=== PATIENT | female | born 1955 | race Caucasian/White ===

== ENCOUNTER 2017-03-28 09:25 | Emergency (ER) | payer OTHER ==
[2017-03-28 09:30] VITALS: BP 179/98; PULSE 100; TEMP 99; BMI 33.2
[2017-03-28] MEDS ORDERED: KETOROLAC TROMETHAMINE 60 MG/2 ML VIAL ONE (10:22)
[2017-03-28] MEDS ORDERED: KETOROLAC TROMETHAMINE 60 MG/2 ML VIAL IM ONE (10:25)
--- NOTE | 2017-03-28 10:27 | PDOC ---
History of Present Illness - General Chief Complaint: Injury Stated Complaint: PAIN/ BACK, HEAD Time Seen by Provider: 03/28/17 09:55 History Source: Patient Exam Limitations: No Limitations - History of Present Illness Initial Comments: 03/28/17 10:26 Was post slip and fall on black ice this morning states fell backwards striking her head on the ground, her upper and lower back and her right buttock. Denied LOC, states was mildly dizzy but has resolved. Feels her mental status is within normal limits but has mild headache. Has multiple contusions to her back and her right buttock but does not feel any extremity injury or deformity. 03/28/17 10:55 Occurred: reports: just prior to arrival, this morning Severity: reports: moderate Pain Location: reports: back, head, pelvis Method of Injury: Yes: direct blow Modifying Factors: improves with: None, cold therapy Loss of Consciousness: no loss of consciousness Associated Symptoms (Fall): muscle spasms Past History - Travel Traveled outside of the country in the last 30 days: No Close contact w/someone who was outside of country & ill: No - Past Medical History Allergies/Adverse Reactions: Allergies Allergy/AdvReac Type Severity Reaction Status Date / Time No Known Allergies Allergy Verified 03/28/17 09:30 Home Medications: Ambulatory Orders Cyclobenzaprine HCl [Flexeril 10 mg] 10 mg PO BID PRN #14 tablet 03/28/17 COPD: No Diabetes: Yes HTN: Yes Hypercholesterolemia: Yes - Suicide/Smoking/Psychosocial Hx Smoking History: Never smoked Hx Alcohol Use: Yes (SOCIAL) Drug/Substance Use Hx: No Substance Use Type: None Trauma Specific PMHX - Complaint Specific PMHX Back Injury: Yes Neck Injury: No Review of Systems - Review of Systems Able to Perform ROS?: Yes Is the patient limited German proficient: Yes Constitutional: Yes: Symptoms Reported, See HPI, Malaise. No: Weakness HEENTM: Yes: See HPI. No: Symptoms Reported Respiratory: Yes: See HPI. No: Symptoms reported, Cough ABD/GI: No: Symptoms Reported Musculoskeletal: Yes: Symptoms Reported, See HPI, Back Pain, Muscle Pain Integumentary: Yes: Symptoms Reported Neurological: No: Symptoms reported All Other Systems: Reviewed and Negative *Physical Exam - Vital Signs Last Vital Signs Temp Pulse Resp BP Pulse Ox 99.0 F 100 H 20 179/98 99 03/28/17 09:25 03/28/17 09:25 03/28/17 09:25 03/28/17 09:25 03/28/17 09:25 - Physical Exam General Appearance: Yes: Nourished, Appropriately Dressed, Apparent Distress HEENT: positive: BALAJI, TMs Normal (no hemotympanum, no drainage from nose or ears, no evidence of skull fracture), Pharynx Normal, Other (has mild tenderness but no obvious contusion or hematoma to scalp at occiput, site of impact). negative: Rhinorrhea Neck: positive: Supple, Other (no cervical spine tenderness, has some mild tenderness to the upper trapezius and sternocleidomastoid full range of motion.) . negative: Tender, Tender midline Respiratory/Chest: positive: Lungs Clear Gastrointestinal/Abdominal: positive: Soft. negative: Tender Extremity: positive: Normal Capillary Refill, Normal Inspection, Normal Range of Motion Integumentary: positive: Dry, Warm, Bruising (bruising and hematoma noted to right gluteus midpoint with tenderness, site of impact). negative: Normal Color Neurologic: positive: studio artist II-XII NML intact, Fully Oriented, Alert, Normal Mood/ Affect, Normal Response, Motor Strength 5/5 Progress Note - Progress Note Progress Note: Status post fall with superficial head injury, no evidence of skull fracture or neurologic change. With multiple contusions. We'll treat for antispasm NSAIDs and have follow-up with her appointment on Sunday scheduled *DC/Admit/Observation/Transfer Diagnosis at time of Disposition: Superficial injury of head Qualifiers: Encounter type: initial encounter Qualified Code(s): S00.90XA - Unspecified superficial injury of unspecified part of head, initial encounter - Discharge Dispostion Disposition: HOME Condition at time of disposition: Stable Admit: No - Prescriptions Prescriptions: Cyclobenzaprine HCl [Flexeril 10 mg] 10 mg PO BID PRN #14 tablet PRN Reason: spasm - Referrals Referrals: Vamsi Finley [Primary Care Provider] - - Patient Instructions Printed Discharge Instructions: DI for Closed Head Injury, Easy Bruising ( Alternative Therapy) Additional Instructions: Rest, avoid strenuous activity or exercise for the next 24-48 hours May use ice on contusions as needed. May use Tylenol or Motrin for pain relief Watch and seek evaluation for changes in behavior including crankiness, inconsolability, quietness/ sleepiness that is inappropriate, tiredness that is inappropriate, watch for worsening and changes of behavior. Seek immediate evaluation/return to emergency department for vomiting, mental status changes, pain that's out of proportion , bloody drainage from ears or nose. Followup with private physician as needed in one to 2 days for reevaluation Rest, no heavy lifting or exercise until pain is resolved Hot soaks to neck and low back as often as possible/hot showers or Jacuzzis No massage or therapy until spasm is gone Continue ibuprofen 2-200 mg tablets every 6 hours for the next 3 days then as needed for pain and swelling Cyclobenzaprine 1-10mg every 8 hours as needed for spasm If not significant improvement within 24 hours with medication and rest regime, followup with private physician for change in medications and /or therapy. - Post Discharge Activity Forms/Work/School Notes: Back to Work
== END 2017-03-28 11:02 | disposition home or self-care (01) ==
LOC: JERFT 09:25
PROC: 3E0233Z Introduction of Anti-inflammatory into Muscle, Percutaneous Approach (ICD-10-PCS; principal; 2017-03-28)
DX: S00.90XA Unspecified superficial injury of unspecified part of head, initial encounter (principal); W00.0XXA Fall on same level due to ice and snow, initial encounter; Y93.89 Activity, other specified; Y92.9 Unspecified place or not applicable; I10 Essential (primary) hypertension; E78.00 Pure hypercholesterolemia, unspecified
CPT/HCPCS: 96372; 99281-25

== ENCOUNTER 2021-02-22 08:22 | Emergency (ER) | payer OTHER ==
[2021-02-22 08:36] VITALS: BMI 32.9
[2021-02-22] MEDS ORDERED: ACETAMINOPHEN 325 MG TABLET (FP) PO ONE (09:15)
[2021-02-22] MEDS ORDERED: ACETAMINOPHEN 325 MG TABLET (FP) ONE (10:33)
[2021-02-22 11:24] LABS: BASO % 0.5 % (0-2.0); EOS % 3.1 % (0-4.5); HEMATOCRIT 39.2 % (32.4-45.2); HEMOGLOBIN 13.4 GM/dL (10.7-15.3); LYMPH % 24.2 % (8-40); MCHC 34.3 g/dl (32.0-36.0); MEAN CELL VOLUME 84.7 fl (80-96); MEAN PLT VOLUME 6.9 fl (7.5-11.1); MONO % 10.9 % (3.8-10.2); NEUT % 61.3 % (42.8-82.8); PLATELET COUNT 313 10^3/uL (134-434); RBC 4.62 M/mm3 (3.60-5.2); RDW 13.4 % (11.6-15.6); WHITE BLOOD COUNT 4.6 K/mm3 (4.0-10.0)
[2021-02-22 11:48] LABS: CHLORIDE 104 mmol/L (98-107); SODIUM 141 mmol/L (136-145)
[2021-02-22 11:50] LABS: ALBUMIN 3.8 g/dl (3.4-5.0); ANION GAP 7 MMOL/L (8-16); BLOOD UREA NITROGEN 13.3 mg/dL (7-18); CALCIUM 9.4 mg/dL (8.5-10.1); CO2 30 mmol/L (21-32)
[2021-02-22 11:51] LABS: GLUCOSE,RANDOM 141 mg/dL (74-106)
[2021-02-22 11:53] LABS: SGPT/ALT 57 U/L (13-61)
[2021-02-22 11:54] LABS: CREATININE 0.8 mg/dL (0.55-1.3); SGOT/AST 33 U/L (15-37)
[2021-02-22 11:55] LABS: BILIRUBIN,TOTAL 0.3 mg/dL (0.2-1); TOT PROT 8.2 g/dl (6.4-8.2)
[2021-02-22 11:56] LABS: ALK PHOS 105 U/L (45-117)
[2021-02-22 12:12] VITALS: TEMP 98.7
[2021-02-22 12:18] VITALS: PULSE 88
[2021-02-22] MEDS ORDERED: amLODIPine BESYLATE 10 MG TABLET (FP) PO ONE (12:19)
[2021-02-22] MEDS ORDERED: amLODIPine BESYLATE 5 MG TABLET (FP) ONE (12:23)
[2021-02-22 13:00] VITALS: BP 177/100
== END 2021-02-22 13:20 ==
LOC: JER 08:22
DX: R07.89 Other chest pain (principal); M25.512 Pain in left shoulder
CPT/HCPCS: 36415; 71046-TC-FY; 73030-TC-LT-FY; 80053; 82550; 84484; 85025; 93005; 93010; 93971-TC; 99285-25; C9803; U0003; U0005